=== PATIENT | male | born 1950 | race Hispanic/Latino ===

== ENCOUNTER 2020-01-01 05:27 | Observation (INO) | payer MEDICARE, OTHER ==
[2019-12-28 15:14] LABS: BASOPHILS % 0.4 % (0.0-1.0); EOSINOPHILS # (AUTO) 0.4 (0.0-0.4); EOSINOPHILS % 7.1 % (0.0-6.0); HEMOGLOBIN 10.5 g/dL (14.0-18.0); LYMPHOCYTES # (AUTO) 1.4 (1.0-3.2); LYMPHOCYTES % 26.7 % (18.0-39.1); MEAN CORPUSCULAR HEMOGLOBIN 27.1 pg (28-32); MEAN CORPUSCULAR HGB CONC 31.8 g/dL (31-35); MEAN CORPUSCULAR VOLUME 85.1 fL (81-99); MONOCYTES # (AUTO) 0.5 (0.2-0.8); MONOCYTES % 9.1 % (4.4-11.3); NEUTROPHILS # (AUTO) 2.9 (2.1-6.9); NEUTROPHILS % 56.3 % (38.7-80.0); PLATELET COUNT 153 x10e3/uL (140-360); RED BLOOD COUNT 3.88 x10e6/uL (4.3-5.7); RED CELL DISTRIBUTION WIDTH 13.4 % (11.7-14.4)
[~2020-01-01] VITALS: Ht 167.6 cm; Wt 90.3 kg
[~2020-01-01 05:27] MED LIST: CHOLESTROL MED PO; FERROUS SULFAT325 M1 PO; GEMFIBROZIL600 MG PO; KEFLEX500 MG PO; LISINOPRIL10 MG PO; PRAVASTATIN SOD40 MG PO
[2020-01-01] MEDS ORDERED: TRANEXAMIC ACID 1,000 MG/10 ML ML ONE (05:42)
[2020-01-01] MEDS ORDERED: SODIUM CHLORIDE 0.9% 500ML 500 ML ONE (05:42)
[2020-01-01] MEDS ORDERED: VANCOMYCIN HCL 1,000 MG ONE (05:42)
[2020-01-01] MEDS ORDERED: CELECOXIB 200 MG CAP ONE (06:20)
[2020-01-01] MEDS ORDERED: DEXAMETHASONE SOD PHOS INJ 4 MG/ML VIAL ONE (06:20)
[2020-01-01] MEDS ORDERED: CEFAZOLIN SOD 1 GM/NS 50ML 100 ML IV ONE (06:21)
[2020-01-01] MEDS ORDERED: GABAPENTIN 300 MG CAP ONE (06:21)
[2020-01-01] MEDS ORDERED: ROPIVACAINE 246.25 MG, EPINEPHRINE HCL 1:1000 1ML 0.5 MG, CLONIDINE HCL 0.08 MG, KETORO... INJ ONE ×5 (08:00)
[2020-01-01] MEDS ORDERED: ZOLPIDEM TARTRATE 5 MG TAB PO PRN (08:30)
[2020-01-01] MEDS ORDERED: ONDANSETRON HCL INJ 2MG/ML 2ML 2 MG/ML VIAL IV PRN (08:30)
[2020-01-01] MEDS ORDERED: DIPHENHYDRAMINE HCL INJ 50 MG/ML VIAL IV PRN (08:30)
[2020-01-01] MEDS ORDERED: HYDROCODONE/APAP 5MG-325MG TAB PO PRN (08:30)
[2020-01-01] MEDS ORDERED: ACETAMINOPHEN 650 MG SUPP PR PRN (08:30)
[2020-01-01] MEDS ORDERED: DOCUSATE SODIUM 100 MG CAP PO PRN (08:30)
[2020-01-01] MEDS ORDERED: HYDROCODONE/APAP 7.5MG-325MG 1 EA TAB PO PRN (08:30)
[2020-01-01] MEDS ORDERED: KETOROLAC TROMETHAMINE 30 MG/ML VIAL IV PRN (08:30)
[2020-01-01 09:37] VITALS: BP 155/60
[2020-01-01 09:38] VITALS: BP 155/60
[2020-01-01] MEDS: SODIUM CHLORIDE 0.9% 1000ML 1,000 ML IV SCH ×2 (10:56→23:38)
[2020-01-01] MEDS: CELECOXIB 200 MG CAP PO SCH ×2 (10:56→16:04)
[2020-01-01] MEDS: ASPIRIN 325 MG TAB PO SCH ×2 (10:56→16:04)
[2020-01-01] MEDS ORDERED: PROPOFOL IV EMULSION 10 MG/ML 20 ML VIAL ONE (12:02)
[2020-01-01] MEDS ORDERED: SEVOFLURANE INHAL SOLN 250 ML PEN BTL ONE (12:02)
[2020-01-01] MEDS ORDERED: LIDOCAINE HCL 2% LOCAL INJ 5 ML SDV VIAL INJ ONE (12:02)
[2020-01-01] MEDS ORDERED: ONDANSETRON HCL INJ 2MG/ML 2ML 2 MG/ML VIAL ONE (12:02)
[2020-01-01 12:34] VITALS: BP 123/46
[2020-01-01] MEDS: CEFAZOLIN SOD 1 GM/NS 50ML 50 ML IV SCH ×2 (14:24→23:38)
[2020-01-01] MEDS ORDERED: MIDAZOLAM HCL 2 MG/2 ML VIAL ONE (15:02)
[2020-01-01] MEDS ORDERED: FENTANYL CITRATE/PF 100MCG/2 ML INJ ONE (15:02)
[2020-01-01 16:33] VITALS: BP 139/67
[2020-01-01] MEDS ORDERED: ROPIVACAINE 0.5% 5 MG/ML 30 ML SDV ONE (17:47)
[2020-01-01 20:00] VITALS: BP 143/64
[2020-01-02 00:32] VITALS: BP 143/64
[2020-01-02 07:02] LABS: HEMATOCRIT 29.3 % (38.2-49.6); HEMOGLOBIN 9.3 g/dL (14.0-18.0)
[2020-01-02] MEDS: CEFAZOLIN SOD 1 GM/NS 50ML 50 ML IV SCH (07:11)
[2020-01-02] MEDS: SODIUM CHLORIDE 0.9% 1000ML 1,000 ML IV SCH (07:11)
[2020-01-02] MEDS ORDERED: ACETAMINOPHEN 1000 MG/100 ML IV PRN (08:30)
[2020-01-02] MEDS ORDERED: GEMFIBROZIL 600 MG TAB PO SCH (09:15)
[2020-01-02] MEDS ORDERED: FERROUS SULFATE 325 MG TAB PO SCH (09:15)
[2020-01-02] MEDS ORDERED: LISINOPRIL 20 MG TAB PO SCH (09:15)
[2020-01-02] MEDS: ASPIRIN 325 MG TAB PO SCH (09:23)
[2020-01-02] MEDS: CELECOXIB 200 MG CAP PO SCH (09:23)
[2020-01-02 09:46] VITALS: BP 136/56
[2020-01-02 10:03] VITALS: BP 136/56
[2020-01-02 12:29] VITALS: BP 142/51
[2020-01-02] MEDS ORDERED: ONDANSETRON HCL 4 MG ORAL DISINTEGRATING TAB PO PRN (13:30)
== END 2020-01-02 14:09 | disposition home or self-care (01) ==
LOC: OR 05:27 → PACU V 08:19 → MED/SURG 09:14
PROVIDERS: ADMIT Specialist; ATTEND Specialist
DX: M17.0 Bilateral primary osteoarthritis of knee (principal); Z11.59 Encounter for screening for other viral diseases; Z01.818 Encounter for other preprocedural examination; I10 Essential (primary) hypertension; K21.9 Gastro-esophageal reflux disease without esophagitis; D50.9 Iron deficiency anemia, unspecified; E78.5 Hyperlipidemia, unspecified
CPT/HCPCS: 27447; 36415 ×2; 71046; 73560; 82948; 85014; 85018; 85025; 86850; 86900; 86920; 97110 ×2; 97116 ×2; 97161; 97530 ×2; C1713 ×2; C1776; G0378 ×2; J0171; J0690 ×2; J1100; J1885; J2001; J2250; J2405; J2704; J2795; J3010; J3370; J7030 ×2; J7040; U0002

== ENCOUNTER 2022-07-20 08:38 | Inpatient (IN) | payer MEDICARE ==
[~2022-07-20] VITALS: Ht 167.6 cm; Wt 95.3 kg
[2022-07-20] MEDS ORDERED: LORAZEPAM INJ 2 MG/ML VIAL IV ONE (09:00)
[2022-07-20 09:27] LABS: BASOPHILS % 0.4 % (0.0-1.0); EOSINOPHILS # (AUTO) 0.2 (0.0-0.4); EOSINOPHILS % 3.1 % (0.0-6.0); HEMATOCRIT 35.7 % (38.2-49.6); HEMOGLOBIN 11.9 g/dL (14.0-18.0); LYMPHOCYTES # (AUTO) 2.4 (1.0-3.2); LYMPHOCYTES % 30.9 % (18.0-39.1); MEAN CORPUSCULAR HEMOGLOBIN 27.1 pg (28-32); MEAN CORPUSCULAR HGB CONC 33.3 g/dL (31-35); MEAN CORPUSCULAR VOLUME 81.3 fL (81-99); MONOCYTES # (AUTO) 0.5 (0.2-0.8); MONOCYTES % 6.5 % (4.4-11.3); NEUTROPHILS # (AUTO) 4.6 (2.1-6.9); NEUTROPHILS % 58.7 % (38.7-80.0); PLATELET COUNT 184 x10e3/uL (140-360); RED BLOOD COUNT 4.39 x10e6/uL (4.3-5.7); RED CELL DISTRIBUTION WIDTH 12.3 % (11.7-14.4)
[2022-07-20] MEDS ORDERED: IOPAMIDOL 370 MG/ML 100 ML INFUS..BTL INJ ONE (09:37)
[2022-07-20] MEDS ORDERED: SODIUM CHLORIDE 0.9% 100 ML ONE (09:38)
[2022-07-20 09:59] LABS: CALCIUM 9.4 mg/dL (8.4-10.2); PHOSPHORUS 2.9 MG/DL (2.3-4.7)
[2022-07-20 10:04] LABS: ALBUMIN 4.1 g/dL (3.5-5.0); ALBUMIN/GLOBULIN RATIO 1.1 (0.8-2.0); CALCIUM 9.5 mg/dL (8.4-10.2); CREATININE, SERUM 1.63 mg/dL (0.72-1.25); MAGNESIUM 1.8 MG/DL (1.3-2.1)
[2022-07-20 10:10] LABS: CREATINE KINASE MB 1.7 ng/mL (0-5.0)
[2022-07-20 13:45] LABS: CLARITY,URINE CLEAR (CLEAR); COLOR,URINE YELLOW (YELLOW); KETONES,URINE NEGATIVE (NEGATIVE); LEUKOCYTE ESTERASE ,URINE NEGATIVE (NEGATIVE); NITRITE,URINE NEGATIVE (NEGATIVE); PROTEIN,URINE DIPSTICK NEGATIVE (NEGATIVE); URINE UROBILINOGEN 0.2 mg/dL (0.2 - 1)
[2022-07-20 13:57] LABS: BACTERIA,URINE RARE /HPF
[2022-07-20] MEDS ORDERED: ASPIRIN 81 MG CHEW TAB PO ONE (14:00)
[2022-07-20] MEDS ORDERED: MAGNESIUM/ALUMINUM/SIMETHICONE 30 ML UDC PO PRN (15:30)
[2022-07-20] MEDS ORDERED: ACETAMINOPHEN 325 MG TAB PO PRN (15:30)
[2022-07-20] MEDS ORDERED: ALBUTEROL/IPRATROPIUM 3 ML NEB NEB PRN (15:30)
[2022-07-20] MEDS ORDERED: MELATONIN 3 MG TAB PO PRN (15:30)
[2022-07-20] MEDS ORDERED: DOCUSATE SODIUM 100 MG CAP PO PRN (15:30)
[2022-07-20] MEDS ORDERED: HYDRALAZINE HCL 20 MG/ML VIAL IV PRN (15:30)
[2022-07-20] MEDS ORDERED: ONDANSETRON HCL INJ 2MG/ML 2ML 2 MG/ML VIAL IV PRN (15:30)
[2022-07-20] MEDS ORDERED: GUAIFENESIN/DEXTROMETHORPHAN LIQD 5 ML UDC PO PRN (15:30)
[2022-07-20 17:44] LABS: CREATINE KINASE MB 1.5 ng/mL (0-5.0)
[2022-07-20] MEDS ORDERED: CETIRIZINE HCL10 MG PO (18:49)
[2022-07-20] MEDS ORDERED: LOSARTAN POTASS25 MG PO (18:49)
[2022-07-20 20:00] VITALS: BP 145/71
[2022-07-20] MEDS: GEMFIBROZIL 600 MG TAB PO SCH (20:41)
[2022-07-20 21:00] VITALS: BP 145/71
[2022-07-21] VITALS (8 sets, daily range): BP systolic 132–159; BP diastolic 59–85
[2022-07-21] MEDS ORDERED: DEXTROSE 50% SYRINGE 50 ML IV PRN (04:45)
[2022-07-21 05:26] LABS: CHOL/HDL RATIO 6.3 (3.9-4.7)
[2022-07-21 06:00] LABS: FREE THYROXINE INDEX 2.2605 (1.4-3.8); THYROID STIMULATING HORMONE 2.971 uIU/mL (0.350-4.940)
[2022-07-21 06:19] LABS: CREATINE KINASE MB 1.4 ng/mL (0-5.0)
[2022-07-21] MEDS ORDERED: GEMFIBROZIL 600 MG TAB PO SCH (08:00)
[2022-07-21] MEDS: MULTIVITAMINS/MINERALS TAB PO SCH (08:47)
[2022-07-21] MEDS: GEMFIBROZIL 600 MG TAB PO SCH ×2 (08:47→16:48)
[2022-07-21] MEDS: ASPIRIN 81 MG ENTERIC COATED PO SCH (08:47)
[2022-07-21] MEDS: INSULIN REGULAR, HUMAN 100 UNIT/1 ML SQ SCH ×4 (08:51→23:02)
[2022-07-21] MEDS ORDERED: LISINOPRIL 20 MG TAB PO SCH (09:00)
[2022-07-21 14:01] LABS: CREATINE KINASE MB 1.3 ng/mL (0-5.0)
[2022-07-21] MEDS ORDERED: ATORVASTATIN 40 MG TAB PO SCH (21:00)
[2022-07-22] MEDS ORDERED: GLUCOTROL XL2.5 MG PO (04:31)
[2022-07-22] MEDS ORDERED: LANCET 30G-GLU1 EACH SC (04:31)
[2022-07-22] MEDS ORDERED: ASPIRIN EC81 MG PO (04:31)
[2022-07-22] MEDS ORDERED: PRAVASTATIN SOD20 MG PO (04:31)
[2022-07-22] MEDS ORDERED: [UNRECOGNIZED DRUG - SUPPLY] SC (04:32)
[2022-07-22 05:35] LABS: ANION GAP 13.7 mmol/L (8-16); CREATININE, SERUM 1.51 mg/dL (0.72-1.25); POTASSIUM 3.7 mmol/L (3.5-5.1)
[2022-07-22 08:00] VITALS: BP 151/70
[2022-07-22 09:18] VITALS: BP 151/70
[2022-07-22] MEDS: ASPIRIN 81 MG ENTERIC COATED PO SCH (09:23)
[2022-07-22] MEDS: MULTIVITAMINS/MINERALS TAB PO SCH (09:23)
[2022-07-22] MEDS: GEMFIBROZIL 600 MG TAB PO SCH ×2 (09:23→17:06)
[2022-07-22] MEDS: INSULIN REGULAR, HUMAN 100 UNIT/1 ML SQ SCH ×3 (09:25→17:09)
[2022-07-22 12:59] VITALS: BP 135/77
[2022-07-22 16:16] VITALS: BP 168/68
[2022-07-22] MEDS ORDERED: ONDANSETRON HCL 4 MG ORAL DISINTEGRATING TAB PO PRN (18:30)
== END 2022-07-22 19:41 | disposition home or self-care (01) | DRG 92 ==
LOC: ER 08:44 → ERHOLD 13:54 → MED/SURG2 18:10 → OBSVTOIN 07-22 09:20
PROVIDERS: ADMIT Internal Medicine Critical Care Medicine; ATTEND Internal Medicine Critical Care Medicine
DX: G72.3 Periodic paralysis (principal); N17.9 Acute kidney failure, unspecified; E78.5 Hyperlipidemia, unspecified; K21.9 Gastro-esophageal reflux disease without esophagitis; M19.90 Unspecified osteoarthritis, unspecified site; W19.XXXA Unspecified fall, initial encounter; S50.311A Abrasion of right elbow, initial encounter; I45.10 Unspecified right bundle-branch block; M54.17 Radiculopathy, lumbosacral region; E11.65 Type 2 diabetes mellitus with hyperglycemia; E11.22 Type 2 diabetes mellitus with diabetic chronic kidney disease; I12.9 Hypertensive chronic kidney disease with stage 1 through stage 4 chronic kidney disease, or unspecified chronic kidney disease; N18.30 Chronic kidney disease, stage 3 unspecified; E11.42 Type 2 diabetes mellitus with diabetic polyneuropathy; Z79.82 Long term (current) use of aspirin
CPT/HCPCS: 36415; 70496; 70498; 70551; 71045; 80048; 80053; 80061; 81001; 82310; 82550; 82553; 82948; 83036; 83735; 84100; 84436; 84443; 84479; 84484; 85025; 93005; 94799; 95819; 99284; G0378; J2060; J7050; Q9967